=== PATIENT | male | born 1955 | race Caucasian/White ===

== ENCOUNTER 2017-02-10 12:27 | Inpatient (IN) | payer OTHER ==
[~2017-02-10] VITALS: Ht 182.9 cm; Wt 122.8 kg
--- NOTE | ~2017-02-10 | ESTC ---
Cardiac Perfusion Imaging Demographics Patient Name ARMAND CORTES Gender Male Patient Number [id number] Race Visit Number [id number] Ethnicity Corporate ID Room Number G6226 Accession Number [id number] Height 72 inches Date of 1955 Weight 268 pounds Interpreting Ana Rosa Ocampo Date of study 02/11/2017 Physician Supervising /JEAN Ocampo NM Technologist Emmanuelle Milan MD Ordering Physician Ana Rosa Ocampo Stress Vipul Hines MD electronics technician apprentice RDCS, RVT Stress ECG Reading Ana Rosa Ocampo Nurse Kofi Yoo RN Physician Procedure Procedure Type: Nuclear Stress Test:Pharmacological, Lexiscan, Cardiolite Stress Test Procedure Start time: 02/11/2017 07:20 Indications: Shortness of breath. Risk Factors The patient risk factors include:prior PCI on 12/01/2010;obesity, former tobacco use, treated hypercholesterolemia, treated hypertension, chronic lung disease and dyslipidemia. Conclusions Summary Lexiscan cardiolite with medium sized area of fixed defect of moderate degree most consistent with soft tissue attenuation. Low normal EF and WM. Stress Protocols Resting ECG RSR. Pre-stress physical exam: Un changed. Predicted HR: 161 bpm ECG Findings No ECG changes suggestive of ischemia. Arrhythmias No rhythm abnormality. Symptoms Shortness of breath. Flushed. Stress Interpretation Lexiscan cardiolite with no significant hemodynamic response. SOB without chest pain. No ischemia. No arrythmias. Imaging Results High risk findings Summed scores - LV dilatation (TID) - Summed stress score: 0 - Summed rest score: 0 - Summed difference score: 0 Stress ejection Ejection fraction:48 % EDV :100 ml ESV :52 ml Stroke volume :48 ml LV mass :126 gr LV size:Normal Normal LV function Imaging Protocols Rest Stress Isotope:Tc99m Sestamibi IV Isotope: Tc99m Sestamibi IV Isotope dose:15.2 mCi Isotope dose:41.8 mCi Date:02/11/2017 07:20 Date:02/11/2017 10:04 Technique: SPECT Technique: Gated Supine SPECT Supine IV remains in place after procedure. Scan Time:30 minutes post injection Scan Time:45-60 minutes post injection Procedure Medications - Regadenoson (Lexiscan) 0.4 mg IV over 10-15 sec. I.V. 0.4 mg. Medical History Admission Data Admission date: 02/10/2017 Admission Time: 12:27 Hospital Status: Inpatient. Signatures dtt: Damaris Oseguera dtd: 02/11/17 0720 Physician Self Edit
--- NOTE | ~2017-02-10 | DS ---
PATIENT'S NAME: TERESA ACUNA [facility] AGE: 61 Y [address] ROOM: [place] [address] LOCATION: GPCU ADMIT DATE: 02/10/2017 Discharge Summary DISCHARGE DATE: 02/18/2017 FAMILY PHYSICIAN: Earl Louis MD ATTENDING PHYSICIAN: Tessa Gonzalez PRIMARY DIAGNOSES: 1. Acute on chronic hypoxic and hypercapnic respiratory failure with chronic obstructive pulmonary disease exacerbation. 2. Hyperglycemia. 3. Acute on chronic diastolic congestive heart failure. 4. Acute kidney injury. 5. Chronic kidney disease stage III. 6. Essential hypertension. 7. Cervical spinal stenosis. HISTORY OF PRESENTING ILLNESS AND REASON FOR ADMISSION: Please refer to the H and P dictated on 02/10/[address] Maria. HOSPITAL COURSE: The patient was admitted to the hospital as noted above with a presumptive diagnosis of COPD exacerbation and diastolic heart failure. He did receive aggressive pulmonary hygiene and diuresis. His clinical condition improved slowly. He had initially been admitted under the care of Dr. Gonzalez and for the planned treatment of cervical spinal stenosis. Because of his respiratory status; however, the hospitalist team provided medical management during the course of his hospital stay. He did receive broad-spectrum antibiotic therapy and also a steroid burst. He was diuresed with IV Bumex. His clinical condition improved and oxygen requirements eventually subsided. By 02/18/2017, it was felt that he would be stable enough for discharge to home with plans for close outpatient followup with his primary care provider as well as outpatient followup with Dr. Gonzalez. DISCHARGE INSTRUCTIONS: Diet: Regular as tolerated. Activity: As tolerated. MEDICATIONS: 1. Lactobacillus 1 cap p.o. b.i.d. 2. Acetaminophen 1000 mg p.o. q.6 hours p.r.n. 3. Symbicort 160/4.5 one puff p.o. b.i.d. 4. Tessalon Perles 200 mg p.o. t.i.d. p.r.n. PATIENT'S NAME: TERESA ACUNA [facility] AGE: 61 Y [address] ROOM: [place] [address] LOCATION: GPCU ADMIT DATE: 02/10/2017 Discharge Summary DISCHARGE DATE: 02/18/2017 FAMILY PHYSICIAN: Earl Louis MD ATTENDING PHYSICIAN: Tessa Gonzalez 5. DuoNeb 4 times a day as needed. 6. Ranitidine 150 mg p.o. q.h.s. 7. Amlodipine 10 mg p.o. daily. 8. Carvedilol 3.125 p.o. b.i.d. 9. Chlorthalidone 25 mg p.o. daily. 10. Fenofibrate 145 mg p.o. daily. 11. Omeprazole 40 mg p.o. daily. 12. Simvastatin 80 mg p.o. q.h.s. 13. Tramadol 50 to 100 mg p.o. q.4 hours p.r.n. 14. Flexeril 10 mg p.o. b.i.d. p.r.n. 15. Aspirin 81 mg p.o. daily. 16. Prednisone 10 mg p.o. daily for 3 days, then 5 mg p.o. daily for 3 days, then stop. FOLLOWUP: He will follow up with Dr. Louis in 3-5 days. Follow up with Dr. Gonzalez in 1-2 weeks. CONDITION ON DISCHARGE: Fair. TOTAL TIME SPENT ON DISCHARGE PROCESS: 45 minutes. MD TERESA SERNA/carlos manuel /[id number] d: 03/06/17 0448 t: 03/07/17 0804, DISCHARGE SUMMARY
--- NOTE | ~2017-02-10 | CATH ---
Cardiac Diagnostic Report Demographics Patient Name ARMAND CORTES Gender Male Date of 1955 Age 61 year(s) Patient Number [id number] Date of Study 02/16/2017 Visit Number [id number] Room Number G6321 [place] [id number] Ht 182.88 cm Wt 120.2 kg Referring Ana Rosa Primary Physician Physician Damaris SCHOFIELD Performing Ana Rosa Secondary Physician Physician Damaris SCHOFIELD Diagnostic Ana Rosa Assisting Physician Physician Damaris SCHOFIELD Interventional Physician Sports Management Internship Physician Findings and Conclusions Diagnostic Findings and Conclusion LVEDP 5 Patent stent LCFX mild CAD Diagnostic Recommendations medical therapy Procedure Description The patient was brought to the diagnostic cardiac catheterization-EP laboratory in the fasting, non-sedated state. Informed consent was obtained in the written and verbal form after the risks and benefits were explained. The patient had no further questions and agreed to proceed. The planned puncture-incision site(s) were shaved and prepped with ChloraPrep and draped in the usual sterile manner. Conscious sedation, supplemental oxygen, and pain control medications were delivered by a registered nurse under physician guidance. Surface ECG rhythm, blood pressure measurement, and pulse oximetry were monitored throughout the procedure. Arterial access. The access site was infiltrated with lidocaine. The vessel was entered with the Seldinger technique. A sheath was advanced into the vessel and used for catheter placement. Selective left coronary angiography. A catheter was advanced into the left coronary vessel ostium under Fluoroscopic guidance. Contrast was injected by hand. Images were obtained in multiple projections. Selective right coronary angiography. A catheter was advanced into the right coronary vessel ostium under fluoroscopic guidance. Contrast was injected by hand. Images were obtained in multiple projections. Left heart catheterization. A catheter was advanced across the aortic valve to the left ventricle under fluoroscopic guidance. Resting hemodynamics were obtained. Arterial artery hemostasis was achieved. The patient was transferred to a regular nursing floor via cart accompanied by a nurse. The patient left the laboratory in stable condition. Diagnostic Cath Status: Urgent Procedure Procedure Type Diagnostic procedure:Angiography:, Coronary Angios w/[facility] Indications: Positive Nuclear: Intermediate and COPD. The procedure was explained in detail to the patient. Risks, complications and alternative treatments were reviewed. Written consent was obtained. Medications Reviewed with Patient prior to Procedure. Angiographic Findings Dominance: Right Cardiac Arteries and Lesion Findings LMCA: Abnormal.luminal irregularities LAD: Abnormal.mild diffuse disease, mid LAD 40% followed by 30% Lesion on Mid LAD: Mid subsection.40% stenosis . Lesion on Mid LAD: Distal subsection.30% stenosis . LCx: Abnormal.mild diffuse disease and patent stent noted RCA: Abnormal.mild diffuse disease Coronary Tree Procedure Data Procedure Date Date: 02/16/2017Start: 11:42 AMEnd: 12:08 PM Entry Locations - Retrograde Percutaneous access was performed through the Right Femoral artery (Primary location). A 7 Fr sheath was inserted. Hemostasis was successfully obtained using Perclose ProGlide (Morrison). Closure Comments: deployed by cayetano. Procedure Medications Order and Administration + + + + + !Time !Medication !Dosage !Route ! + + + + + !02/16/2017 11:35 AM !Versed !0.5 mg !I.V. ! + + + + + !02/16/2017 11:36 AM !Fentanyl !25 mcg !I.V. ! + + + + + !02/16/2017 11:42 AM !Versed !0.5 mg !I.V. ! + + + + + !02/16/2017 11:44 AM !Fentanyl !25 mcg !I.V. ! + + + + + !02/16/2017 11:49 AM !0.9% NaCl !150 ml/hr !I.V. drip ! + + + + + Devices Used - A6 Fr. BS JR 4 Diag. Catheterwas used for:Right coronary angiography. - A6 Fr. BS JL 4 Diag. Catheterwas used for:Left coronary angiography. - ACATH 6F JL4.5 CATHETER 100CMwas used for:Left coronary angiography. Contrast Material - Isovue 64374 ml Fluoroscopy Time: Diagnostic: 4:48 minutes. Total: 4:48 minutes. Fluoroscopy Dose: Diagnostic: 1689 mGy. Total: 1689 mGy. Estimated Blood Loss: 15 ml. Medical History Allergies - No known allergies. Risk Factors The patient risk factors include:prior PCI on 12/01/2010;obesity, treated hypercholesterolemia, treated hypertension, chronic lung disease, last creatinine: 1.4 mg/dl, creatinine clearance: 96.59 ml/min, dyslipidemia, Current/Recent(w/in 1 year) tobacco use and prior heart failure . Admission Data Admission Date: 02/10/2017 Admission Time: 12:27 PM Admit Source: Transfer acute care facility Insurance Payors: Private health insurance. Admission Medications + +------+------+ + + + + !Medication !Dosage!Times !Last !Last !Administered !Comments ! ! ! !Per !Delivery !Delivery ! ! ! ! ! !Day !Date !Time ! ! ! + +------+------+ + + + + !Beta ! ! ! ! !Yes ! ! !Anel ! ! ! ! ! ! ! !(any) ! ! ! ! ! ! ! + +------+------+ + + + + !Non-Statin ! ! ! ! !Yes ! ! !(any) ! ! ! ! ! ! ! + +------+------+ + + + + !Statin ! ! ! ! !Yes ! ! !(any) ! ! ! ! ! ! ! + +------+------+ + + + + Clinical Evaluation Leading to Procedure - There were no CAD presentation symptoms. - There were no anginal symptoms. Anti-anginal medications were prescribed during the past two weeks. The medications are: Beta Blockers and Other. - The patient has been in a state of heart failure within the past two weeks. - The patient's heart failure status was assessed as NYHA Class IV. VA Ventriculography Findings LVEDP 5 Hemodynamics Condition: Rest O2 Consumption: Estimated: 265.13Heart Rate: 51 bpm Pressures (mmHg) +-----+ + !Site !Pressure ! +-----+ + !LV !120/1 ,9 ! +-----+ + !LV !117/1 ,8 ! +-----+ + !AO !123/69 (93) ! +-----+ + !LV !119/0 ,9 ! +-----+ + !AO !124/70 (94) ! +-----+ + Valve Gradients and Areas + +---------+---------+---------+ +---------+ + !Valve !Peak !Mean !Area !Index !Flow !Source ! + +---------+---------+---------+ +---------+ + !Aortic !0 !0 ! ! ! ! ! + +---------+---------+---------+ +---------+ + !Aortic !0 !0 ! ! ! ! ! + +---------+---------+---------+ +---------+ + Shunts Oxygen Values O2 Capacity 216.24 O2 Consumption 265.13 Signatures dtt: Damaris Oseguera dtd: 02/16/17 1142 Physician Self Edit
--- NOTE | ~2017-02-10 | CON ---
PATIENT'S NAME: TERESA ACUNA [facility] AGE: 61 Y [address] ROOM: [address] [place], [place] [address] LOCATION: [facility] ADMIT DATE: 02/10/2017 Consultation DISCHARGE DATE: FAMILY PHYSICIAN: Earl Louis MD ATTENDING PHYSICIAN: Tessa Gonzalez DATE OF CONSULTATION: 02/10/2017 REFERRING PHYSICIAN: Damaris Oseguera MD Dear Dr. Mcintosh: Thank you for asking me to see Mr. Acuna, who is a 61-year-old male patient, who was noticing worsening shortness of breath and tiredness since 2013. In 2010, he had shortness of breath and had fluid in his lungs, which led to putting a stent in his circumflex vessel. After that, he thought he was doing well up until 2013. A week before he arrived in [place], he developed "bronchitis" and was evaluated by Dr. Earl Louis and was hospitalized in [place]. He talked about having lot of pain in his neck, and he underwent an MRI evaluation there. He was sent over to Dr. Gonzalez as an outpatient. When he got here, he was quite short of breath, and so he was hospitalized for further evaluation of the shortness of breath. He currently seems to be in functional class IV. He has been on 2 L of oxygen for the past week at least. He denies any chest pain. He denies any paroxysmal nocturnal dyspnea or orthopnea. There is no history of syncope, presyncope, palpitations, lightheadedness, dizziness, or ankle swelling. The patient has history of hypertension, hyperlipidemia, and he is a smoker. There is no family history of premature coronary artery disease. There is no history of diabetes. There is no history of ME or angina or nitroglycerin use. There is no history of rheumatic fever, heart murmur. He has history of congestive heart failure. There is no history of atrial fibrillation. There is mention of a moderate mitral regurgitation in his chart. MEDICATIONS: 1. Lactobacillus. 2. Acetaminophen. 3. Symbicort. 4. Levofloxacin. 5. Methylprednisone. 6. Potassium chloride. 7. Ranitidine. 8. Amlodipine 10 mg a day. PATIENT'S NAME: TERESA ACUNA [facility] AGE: 61 Y [address] ROOM: [address] [address] LOCATION: [facility] ADMIT DATE: 02/10/2017 Consultation DISCHARGE DATE: FAMILY PHYSICIAN: Earl Louis MD ATTENDING PHYSICIAN: Tessa Gonzalez 9. Carvedilol 12.5 p.o. b.i.d. 10. Chlorthalidone 25 mg once a day. 11. Fenofibrate 145 mg a day. 12. Omeprazole 40 mg a day. 13. Simvastatin 80 mg a day. 14. Tramadol 50 mg 1-2 every 4 hours. 15. Cyclobenzaprine. 16. Zanaflex. ALLERGIES: NONE. PAST MEDICAL HISTORY: 1. COPD. 2. Sleep apnea. 3. Cervical stenosis. 4. History of hernia surgery. SOCIAL HISTORY: The patient is single. He denies abusing alcohol. His appetite and weight are stable. Sleep is poor. FAMILY HISTORY: No premature coronary artery disease. REVIEW OF SYSTEMS: 1. Sinuses. 2. Cough. 3. COPD. 4. CKD. PHYSICAL EXAMINATION: VITAL SIGNS: On examination, his blood pressure is 180/80, heart rate is in the 70s and regular, respirations 18, afebrile. HEENT: Normal. NECK: Supple with no JVD, thyromegaly, lymphadenopathy, or carotid bruit. PMI is not well located. First and second heart sounds are regular. There are no added sounds or murmurs. CHEST: Clear to auscultation. ABDOMEN: Soft and nontender. Bowel sounds are normally present. EXTREMITIES: Reveal trace edema. CENTRAL NERVOUS SYSTEM: Intact. ASSESSMENT: A 61-year-old male patient with hypertension, hyperlipidemia, low HDL level, PATIENT'S NAME: TERESA ACUNA [facility] AGE: 61 Y [address] ROOM: [address] [place] [id number] LOCATION: [facility] ADMIT DATE: 02/10/2017 Consultation DISCHARGE DATE: FAMILY PHYSICIAN: Earl Louis MD ATTENDING PHYSICIAN: Tessa Gonzalez who smoked until 7 days ago, who has significant shortness of breath. He is awaiting neck surgery. He was recently started on oxygen 7 days ago. The extent of his chronic obstructive pulmonary disease is unclear. His D-dimer is elevated. His stress test basically shows transient ischemic dilation. His echo shows normal EF. RECOMMENDATIONS: We will try to get a CT of the chest PE protocol by tomorrow or day after tomorrow depending on how his kidney does. His stress test will also be done and based further management on his stress test as well as his PFTs. Again, I appreciate this opportunity to participate in the care of Mr. Acuna. MD GREGORIA SINGLETARY/carlos manuel /[id number] d: 02/11/17 2304 t: 02/25/17 1233, CONSULTATION REPORT
--- NOTE | ~2017-02-10 | HP ---
PATIENT'S NAME: TERESA ACUNA [facility] AGE: 61 Y [address] ROOM: [place] [address] LOCATION: [facility] ADMIT DATE: 02/10/2017 History & Physical DISCHARGE DATE: FAMILY PHYSICIAN: Earl Louis MD ATTENDING PHYSICIAN: Tessa Gonzalez DATE OF SERVICE: CHIEF COMPLAINT: Shortness of breath. HISTORY OF PRESENT ILLNESS: The patient is a very poor historian. His past medical history was obtained entirely from our medical records. He is a 61-year-old male with past medical history significant for coronary artery disease and moderate mitral regurgitation. The patient was being evaluated in Dr. Gonzalez's office today for a surgical intervention for cervical spinal stenosis, but was found to be considerably dyspneic, and was sent directly to the hospital. Of note, the patient was recently treated by his PMD for "bronchitis." The patient is not sure as to any of the medicines that he is on, but I do see Medrol Dosepak and Levaquin in his medical regimen. The patient also reports that he was started on oxygen at 2 L nasal cannula. He denies any chest pain, nausea, vomiting, diaphoresis, or any dyspnea in fact, while his oxygen saturation was indeed in low 80s here. He denies any orthopnea, but he constantly sleeps on two pillows. Upon evaluation on the floor, the patient was found to be saturating in low 80s, and required six liters to seven liters to get him over 90. REVIEW OF SYSTEMS: All systems have been reviewed and are negative aside from pertinent positives mentioned above. PAST MEDICAL HISTORY: Again, this is extracted from the chart as the patient initially told me that he did not have any medical problems. 1. COPD chronic obstructive pulmonary disease. 2. Obstructive sleep apnea, on CPAP. 3. Coronary artery disease, status post stenting with bare-metal stent in 2010. PATIENT'S NAME: TERESA ACUNA [facility] AGE: 61 Y [address] ROOM: [address] [address] LOCATION: [facility] ADMIT DATE: 02/10/2017 History & Physical DISCHARGE DATE: FAMILY PHYSICIAN: Earl Louis MD ATTENDING PHYSICIAN: Tessa Gonzalez 4. Moderate mitral regurgitation. 5. Hypertension. 6. Hyperlipidemia. 7. Cervical spinal stenosis. SURGICAL HISTORY: The patient endorses history of a hernia. CURRENT MEDICATIONS: As extracted from supplementing records, 1. Tylenol. 2. Amlodipine. 3. Benzonatate. 4. Symbicort. 5. Carvedilol. 6. Chlorthalidone. 7. Cyclobenzaprine. 8. Fenofibrate. 9. DuoNeb. 10. Lactobacillus. 11. Levaquin. 12. Medrol. 13. Omeprazole. 14. Potassium chloride. 15. Ranitidine. 16. Simvastatin. 17. Tizanidine hydrochloride. 18. Tramadol. SOCIAL HISTORY: Habits: The patient endorses 80 pack years, having stopped one week ago. He denies any alcohol or drug use. Occupational History: He works at a [employer] plant. Nutrition Status: He endorses dietary non-compliance, and basically eats whatever he wants. FAMILY HISTORY: Reviewed and is noncontributory due to known underlying etiology of the patient's presentation. PHYSICAL EXAMINATION: VITAL SIGNS: At this point, his heart rate is in the 70s, his blood pressure is 118/60, saturating 88% on 4 L nasal cannula, afebrile, and respirations are PATIENT'S NAME: TERESA ACUNA [facility] AGE: 61 Y [address] ROOM: [address] [place], [place] [address] LOCATION: [facility] ADMIT DATE: 02/10/2017 History & Physical DISCHARGE DATE: FAMILY PHYSICIAN: Earl Louis MD ATTENDING PHYSICIAN: Tessa Gonzalez 16. GENERAL: He appears as a morbidly obese, middle-aged male, in no acute distress. NEUROLOGICAL: Nonfocal. OPHTHALMOLOGICAL: Eye exam shows pupils are equal and reactive to light. LYMPHATICS: Showed cervical lymphadenopathy. ENDOCRINE: Showed no thyromegaly. LUNGS: Revealed diminished breath sounds in all workman. There are expiratory crackles appreciated at bases as well as at apices bilaterally. There is about 8 cm of jugular venous distention. CARDIAC: Heart rate is regular with no appreciable murmurs, gallops, or rubs. There is no lower extremities edema. GASTROINTESTINAL: Abdomen is soft, nontender, and nondistended. GENITOURINARY: Revealed no costovertebral angle tenderness. VASCULAR: A 2+ pedal pulses. MUSCULOSKELETAL: Reveals some upper extremity weakness. SKIN: Warm and dry. PSYCHIATRIC: Reveals appropriate mood, cognition, and affect. LABORATORY DATA AND DIAGNOSTIC STUDIES: Studies that are available at this point is an ABG (arterial blood gases) showing pH of 7.54, pCO2 of 36, pO2 of 56 with a bicarbonate of 30.8, and saturation of 92% on 7 L. Sodium was 134, potassium was 3.1, chloride was 95, calcium was 8.3, BUN was 27, and creatinine was 1.6. ProBNP is 1487. D-dimer of 1.196. Chest x-ray demonstrates pulmonary edema, more pronounced on the left. ASSESSMENT AND PLAN: This is a 61-year-old male, who will be admitted as inpatient with 1. Acute on chronic hypoxic respiratory failure. This is likely a combination of underlying chronic obstructive pulmonary disease, as well as diastolic dysfunction/mitral regurgitation. We will begin diuresing the patient, and monitor his saturations. We will continue him on his inhalers as well as antibiotics for chronic obstructive pulmonary disease exacerbation, and continue him on steroids. We will provide him supplemental oxygen, but he appears to be at least somewhat of a chronic retainer, and we will keep his oxygen saturations between 88 and 92 if possible. 2. Suspected acute on chronic diastolic congestive heart failure. We will PATIENT'S NAME: TERESA ACUNA [facility] AGE: 61 Y [address] ROOM: [place] [address] LOCATION: [facility] ADMIT DATE: 02/10/2017 History & Physical DISCHARGE DATE: FAMILY PHYSICIAN: Earl Louis MD ATTENDING PHYSICIAN: Tessa Gonzalez the patient. We will get a two-dimensional echocardiogram. We will request records from his primary pest control technician, Dr. Glasgow. 3. Tobaccoism. At this point, the patient claims to have quit, but we will offer him a nicotine patch if needed. 4. Coronary artery disease. We will check the patient's lipids, and continue him on aspirin. Given his dietary non-compliance and continued tobacco use, we will get a Cardiology evaluation as the patient is being planned for a spinal surgery. Additional management will depend on clinical course. Critical care time dedicated to this patient's encounter is 35 minutes. MD MICHELLE RYAN/carlos manuel /[id number] D: [id number] T: [id number] HISTORY & PHYSICAL
--- NOTE | ~2017-02-10 | PUL ---
PATIENT'S NAME: TERESA ACUNA [facility] AGE: 61 Y [address] ROOM: [address] [address] LOCATION: [facility] ADMIT DATE: 02/10/2017 Pulmonary DISCHARGE DATE: FAMILY PHYSICIAN: Earl Louis MD ATTENDING PHYSICIAN: Tessa Gonzalez NAME OF PROCEDURE: Pulmonary Function Test DATE OF PROCEDURE: February 12, 2017 TECH: SACHIN Wilde REASON FOR EXAM: COPD RESULTS: 1. FVC was 3.04 liters which is 59% of predicted and low, FEV1 was 2.27 liters which is 58% of predicted and low, and FEV1/FVC was 75% and normal. The flow volume curve did not reveal any significant airflow limitation. However, there is suggestion of restrictive lung disease. After bronchodilator administration FVC decreased to 2.99 liters and FEV1 decreased to 2.24 liters. FEV1/FVC was 75%. 2. DLCO was 9.3 with an adjusted DLCO of 8.8 which is 30% of predicted and low. 3. Total lung capacity was 5.53 liters which is 77% of predicted and low, and residual volume was 2.44 liters which is 98% of predicted and normal. PHYSICIAN INTERPRETATION: The patient has no airflow limitation and no significant bronchodilator response. His diffusion capacity is severely low. There is evidence of moderately severe restrictive lung disease. TYRONE BAUTISTA MD RFSheri/toya /[id number] dtt: 02/12/17 1403 , TYRONE BAUTISTA dtd: 02/12/17 1106
--- NOTE | ~2017-02-10 | ECHO ---
Transthoracic Echocardiography Report (TTE) Demographics Patient Name TERESA ACUNA Date of Study 02/10/2017 Patient Number [id number] Visit Number [id number] Date of 1955 Room Number G6226 Accession Number [id number] Gender Male Age 61 year(s) Referring Carlos Wade Hand Touch Up Painter Chino Lundberg Physician MD Heriberto Jean MD Physician Interpreting Ana Rosa Ocampo Flotation Tank Operator Physician Supervising Ordering Physician Candace Li MD/[facility] [place] Nurse Stress Carton Forming Machine Tender Conclusions Contractility Score Summary Normal Left Ventricular contractility was noted. Summary The estimated left ventricular ejection fraction is 55% with normal WM.The left ventricle is normal in size .Mild concentric left ventricular hypertrophy. The right atrial pressures are mildly increased. Trivial MR and AR. Trivial TR with normal pulmonary pressures. Procedure Type of Study TTE procedure:2D Echocardiogram, M-Mode, Doppler , Color Doppler. Procedure Date Date: 02/10/2017 Start: 03:07 PM Study Location: Inpatient Portable Technical Quality: Good visualization Indications:CHF. Appropriate Use Criteria: 9 Patient Status: Routine HR: 61 bpm BP: 110/73 mmHg M-Mode/2D Measurements LV Diastolic Dimension: 4.94 cm LV Systolic Dimension: 3.18 cm LV Septum Diastolic: 1.21 cm LV PW Diastolic: 1.38 cm AO Root Dimension: 2.9 cm Cardiac Output: 4.64 l/min LA Dimension: 4.4 cm LVOT: 2.3 cm LVOT VTI: 18.3 cm RV Base: 3.13 cm LV Stroke volume: 75.99 ml RV Length: 7.75 cm TAPSE: 2.02 cm TDI-S': 15.1 cm/s Doppler Measurements AV Peak Velocity: 1.1 m/s MV Peak E-Wave: 0.52 m/s AV Peak Gradient: 4.84 mmHg MV Peak A-Wave: 0.98 m/s AV Mean Gradient: 3 mmHg MV E/A Ratio: 0.52 LVOT Peak Velocity: 1 m/s MV P1/2t: 47 msec MV Deceleration Time: 155 msec TR Gradient:24.6 mmHg PV Peak Velocity: 0.64 m/s Estimated RAP:8 mmHg PV Peak Gradient: 1.62 mmHg Estimated RVSP: 33 mmHg Estimated PASP: 32.6 mmHg E' Septal Velocity: 0.07 m/s A' Septal Velocity: 0.1 m/s E' Lateral Velocity: 0.07 m/s A' Lateral Velocity: 0.11 m/s Findings Left Ventricle The left ventricle is normal in size .Mild concentric left ventricular hypertrophy.Normal EF and WM. Right Ventricle Normal right ventricle structure and function. Left Atrium Normal left atrial size. Right Atrium Normal right atrial size. Increased RA pressures. Mitral Valve Trivial mitral regurgitation by color Doppler. Aortic Valve Normal aortic valve structure and function. Tricuspid Valve Trivial tricuspid regurgitation by color Doppler. Pulmonic Valve Normal pulmonic valve structure and function. Pericardial Effusion No evidence of pericardial effusion. Miscellaneous Visualized portions of the aortic root and ascending aorta appear normal in size. Pleural Effusion No evidence of pleural effusion. Contractility Score LV regional wall motion:(0-Non visualized 1-Normal 2-Hypokinesis 3-Akinesis 4-Dyskinesis 5-Aneurysm) Signature dtt: Damaris Oseguera dtd: 02/10/17 1507 Physician Self Edit
[2017-02-10] MEDS ORDERED: ACIDOPHILUS1 EAC4 PO (13:06)
[2017-02-10] MEDS ORDERED: TYLENOL EXTRA500 MG PO (13:07)
[2017-02-10] MEDS ORDERED: SYMBICORT 16010.2 GM INH (13:07)
[2017-02-10] MEDS ORDERED: BENZONATATE200 MG PO (13:08)
[2017-02-10] MEDS ORDERED: IPRAT-ALBUT 0.5-3 ML INH (13:09)
[2017-02-10] MEDS ORDERED: LEVAQUIN500 MG PO (13:12)
[2017-02-10] MEDS ORDERED: MEDROL4 M1 PO (13:13)
[2017-02-10] MEDS ORDERED: POTASSIUM CHLO20 ME1 PO (13:13)
[2017-02-10] MEDS ORDERED: NORVASC10 MG PO (13:14)
[2017-02-10] MEDS ORDERED: COREG 3.1253.125 MG PO (13:14)
[2017-02-10] MEDS ORDERED: ZANTAC (NON-FO150 MG PO (13:14)
[2017-02-10] MEDS ORDERED: HYGROTON25 MG PO (13:14)
[2017-02-10] MEDS ORDERED: TRICOR145 MG PO (13:15)
[2017-02-10] MEDS ORDERED: ZOCOR80 MG PO (13:15)
[2017-02-10] MEDS ORDERED: OMEPRAZOLE40 MG PO (13:15)
[2017-02-10] MEDS ORDERED: FLEXERIL10 MG PO (13:16)
[2017-02-10] MEDS ORDERED: ULTRAM50 MG PO (13:16)
[2017-02-10] MEDS ORDERED: ZANAFLEX4 MG PO (13:17)
[2017-02-10 13:24] LABS: BICARBONATE 30.8 mmol/L (18.0-23.0); PCO2 36 mmHg (35-45); PO2 56 mmHg (80-90)
[2017-02-10 13:32] LABS: HEMATOCRIT 48.2 % (37.0-53.0); HEMOGLOBIN 16.7 g/dL (12.0-17.0); MCH 30.9 pg (27.0-34.0); MCHC 34.6 gm/dL (32.0-36.5); MCV 89.3 fl (83.0-98.0); MPV 10.4 fl (9.4-12.4); PLATELET COUNT 158 K/uL (150-450); RDW-CV 13.9 % (11.9-14.6); WBC 7.5 K/uL (4.0-11.0)
[2017-02-10 13:49] LABS: ANION GAP 12.1 (10.0-19.0); CALCIUM 8.3 mg/dL (8.5-10.5); CREATININE 1.6 mg/dL (0.6-1.3); MAGNESIUM 1.9 mg/dL (1.3-2.6); PHOSPHORUS 3.4 mg/dL (2.5-4.9); POTASSIUM 3.1 mMol/L (3.7-5.1)
[2017-02-10 14:03] LABS: BANDED NEUTROPHIL # 0.4 K/uL (0.0-0.1); BANDED NEUTROPHILS % 5 %; LYMPHOCYTE # 1.4 K/uL (0.8-4.0); LYMPHOCYTE % 9 %; MONOCYTE # 0.2 K/uL (0.0-1.0); SEGMENTED NEUTROPHIL # 5.6 K/uL (1.4-9.0)
[2017-02-10 14:04] LABS: ABSOLUTE NEUTROPHIL CT (ANC) 5.9 K/uL (1.4-9.0); SEGMENTED NEUTROPHIL % 74 %
[2017-02-10 15:05] LABS: CPK 159 IU/L (35-332)
[2017-02-11 05:15] LABS: ANION GAP 12.4 (10.0-19.0); CALCIUM 8.8 mg/dL (8.5-10.5); CREATININE 1.7 mg/dL (0.6-1.3); MAGNESIUM 2.4 mg/dL (1.3-2.6); PHOSPHORUS 4.2 mg/dL (2.5-4.9); POTASSIUM 3.4 mMol/L (3.7-5.1)
[2017-02-12 04:33] LABS: CALCIUM 8.9 mg/dL (8.5-10.5); CREATININE 1.6 mg/dL (0.6-1.3)
[2017-02-12 04:36] LABS: ANION GAP 11.6 (10.0-19.0); POTASSIUM 3.6 mMol/L (3.7-5.1)
[2017-02-13 04:11] LABS: HEMATOCRIT 46.7 % (37.0-53.0); HEMOGLOBIN 15.8 g/dL (12.0-17.0); MCH 31.1 pg (27.0-34.0); MCHC 33.8 gm/dL (32.0-36.5); MCV 91.9 fl (83.0-98.0); MPV 10.1 fl (9.4-12.4); RBC 5.08 M/uL (4.00-6.00); RDW-CV 13.9 % (11.9-14.6); WBC 7.6 K/uL (4.0-11.0)
[2017-02-13 04:13] LABS: PLATELET COUNT 257 K/uL (150-450)
[2017-02-13 04:29] LABS: ANION GAP 11.5 (10.0-19.0); CALCIUM 8.8 mg/dL (8.5-10.5); CREATININE 1.8 mg/dL (0.6-1.3); POTASSIUM 3.5 mMol/L (3.7-5.1)
[2017-02-13 05:34] LABS: ABSOLUTE NEUTROPHIL CT (ANC) 5.9 K/uL (1.4-9.0); BANDED NEUTROPHIL # 0.6 K/uL (0.0-0.1); BANDED NEUTROPHILS % 8 %; LYMPHOCYTE # 1.4 K/uL (0.8-4.0); LYMPHOCYTE % 18 %; MONOCYTE # 0.3 K/uL (0.0-1.0); SEGMENTED NEUTROPHIL # 5.2 K/uL (1.4-9.0); SEGMENTED NEUTROPHIL % 69 %
[2017-02-14 05:10] LABS: HEMATOCRIT 46.6 % (37.0-53.0); HEMOGLOBIN 15.9 g/dL (12.0-17.0); MCH 31.2 pg (27.0-34.0); MCHC 34.1 gm/dL (32.0-36.5); MCV 91.6 fl (83.0-98.0); PLATELET COUNT 297 K/uL (150-450); RBC 5.09 M/uL (4.00-6.00); RDW-CV 13.7 % (11.9-14.6); WBC 13.3 K/uL (4.0-11.0)
[2017-02-14 05:19] LABS: ANION GAP 10.7 (10.0-19.0); CALCIUM 8.7 mg/dL (8.5-10.5); CREATININE 1.6 mg/dL (0.6-1.3); POTASSIUM 3.7 mMol/L (3.7-5.1)
[2017-02-14 07:19] LABS: ABSOLUTE NEUTROPHIL CT (ANC) 10.1 K/uL (1.4-9.0); BANDED NEUTROPHIL # 0.5 K/uL (0.0-0.1); BANDED NEUTROPHILS % 4 %; LYMPHOCYTE # 2.3 K/uL (0.8-4.0); LYMPHOCYTE % 17 %; MONOCYTE # 0.9 K/uL (0.0-1.0); SEGMENTED NEUTROPHIL # 9.6 K/uL (1.4-9.0); SEGMENTED NEUTROPHIL % 72 %
[2017-02-15 05:27] LABS: BASOPHIL % 0.3 %; HEMATOCRIT 47.2 % (37.0-53.0); HEMOGLOBIN 15.9 g/dL (12.0-17.0); IMMATURE GRANULOCYTE # 0.6 K/uL (0.0-0.3); LYMPHOCYTE # 1.4 K/uL (0.8-4.0); MCH 30.9 pg (27.0-34.0); MCHC 33.7 gm/dL (32.0-36.5); MCV 91.7 fl (83.0-98.0); MONOCYTE # 0.8 K/uL (0.0-1.0); MONOCYTE % 4.8 %; MPV 9.9 fl (9.4-12.4); NEUTROPHIL # (ANC) 13.1 K/uL (1.4-9.0); NEUTROPHIL % 81.9 %; NRBC % 0 /100WBC (0-0.00); PLATELET COUNT 309 K/uL (150-450); RBC 5.15 M/uL (4.00-6.00); RDW-CV 13.7 % (11.9-14.6)
[2017-02-15 05:37] LABS: ANION GAP 12.2 (10.0-19.0); CALCIUM 8.9 mg/dL (8.5-10.5); CREATININE 1.4 mg/dL (0.6-1.3); POTASSIUM 4.2 mMol/L (3.7-5.1)
[2017-02-16 03:33] LABS: BASOPHIL % 0.2 %; HEMATOCRIT 47.2 % (37.0-53.0); HEMOGLOBIN 15.9 g/dL (12.0-17.0); IMMATURE GRANULOCYTE # 0.8 K/uL (0.0-0.3); IMMATURE GRANULOCYTE % 4.4 %; LYMPHOCYTE # 1.3 K/uL (0.8-4.0); LYMPHOCYTE % 7.1 %; MCH 31.3 pg (27.0-34.0); MCHC 33.7 gm/dL (32.0-36.5); MCV 92.9 fl (83.0-98.0); MONOCYTE # 0.9 K/uL (0.0-1.0); MONOCYTE % 4.8 %; MPV 10.2 fl (9.4-12.4); NEUTROPHIL # (ANC) 15.1 K/uL (1.4-9.0); NEUTROPHIL % 83.5 %; NRBC % 0 /100WBC (0-0.00); PLATELET COUNT 306 K/uL (150-450); RBC 5.08 M/uL (4.00-6.00); RDW-CV 13.6 % (11.9-14.6)
[2017-02-16 03:53] LABS: ANION GAP 12.2 (10.0-19.0); CALCIUM 8.7 mg/dL (8.5-10.5); CREATININE 1.4 mg/dL (0.6-1.3); POTASSIUM 4.2 mMol/L (3.7-5.1)
[2017-02-17 06:05] LABS: BASOPHIL % 0.2 %; HEMOGLOBIN 15.7 g/dL (12.0-17.0); IMMATURE GRANULOCYTE # 0.3 K/uL (0.0-0.3); IMMATURE GRANULOCYTE % 2.7 %; LYMPHOCYTE # 1.4 K/uL (0.8-4.0); LYMPHOCYTE % 12.4 %; MCH 30.9 pg (27.0-34.0); MCHC 33.4 gm/dL (32.0-36.5); MCV 92.5 fl (83.0-98.0); MONOCYTE # 0.9 K/uL (0.0-1.0); MONOCYTE % 7.9 %; MPV 9.9 fl (9.4-12.4); NEUTROPHIL # (ANC) 8.8 K/uL (1.4-9.0); NEUTROPHIL % 76.8 %; NRBC % 0 /100WBC (0-0.00); PLATELET COUNT 299 K/uL (150-450); RBC 5.08 M/uL (4.00-6.00); RDW-CV 13.7 % (11.9-14.6); WBC 11.4 K/uL (4.0-11.0)
[2017-02-17 06:13] LABS: ANION GAP 11.3 (10.0-19.0); BLOOD UREA NITROGEN 39 mg/dL (6-24); CALCIUM 8.4 mg/dL (8.5-10.5); CHLORIDE 103 mMol/L (96-110); CO2 31 mMol/L (22-32); CREATININE 1.2 mg/dL (0.6-1.3); ESTIMATED GFR (MDRD EQUATION) > 60; POTASSIUM 4.3 mMol/L (3.7-5.1); SODIUM 141 mMol/L (135-145)
[2017-02-18 04:01] LABS: BASOPHIL % 0.1 %; EOSINOPHIL % 0.3 %; HEMATOCRIT 47.4 % (37.0-53.0); HEMOGLOBIN 16.3 g/dL (12.0-17.0); IMMATURE GRANULOCYTE # 0.2 K/uL (0.0-0.3); IMMATURE GRANULOCYTE % 2.1 %; LYMPHOCYTE # 1.9 K/uL (0.8-4.0); MCH 31.2 pg (27.0-34.0); MCHC 34.4 gm/dL (32.0-36.5); MCV 90.6 fl (83.0-98.0); MONOCYTE # 0.9 K/uL (0.0-1.0); MPV 9.6 fl (9.4-12.4); NEUTROPHIL # (ANC) 7.3 K/uL (1.4-9.0); NEUTROPHIL % 70.5 %; NRBC % 0 /100WBC (0-0.00); PLATELET COUNT 314 K/uL (150-450); RBC 5.23 M/uL (4.00-6.00); RDW-CV 13.6 % (11.9-14.6); WBC 10.4 K/uL (4.0-11.0)
[2017-02-18] MEDS ORDERED: ASPIRIN (CHILDR81 MG PO (11:26)
[2017-02-18] MEDS ORDERED: PREDNISONE10 MG PO (12:02)
== END 2017-02-18 13:10 | disposition disaster alternative care site (69) | DRG 286 ==
LOC: GNTU 12:27 → EDSTATUS 12:30 → GPCU 02-15 21:32
PROVIDERS: Family Medicine; Internal Medicine; Nurse Practitioner Adult Health; Nurse Practitioner Family; ADMIT Neurological Surgery
DX: I11.0 Hypertensive heart disease with heart failure (principal); J18.9 Pneumonia, unspecified organism; J96.21 Acute and chronic respiratory failure with hypoxia; N17.9 Acute kidney failure, unspecified; M48.02 Spinal stenosis, cervical region; G95.20 Unspecified cord compression; I50.33 Acute on chronic diastolic (congestive) heart failure; E78.5 Hyperlipidemia, unspecified; E87.6 Hypokalemia; I25.10 Atherosclerotic heart disease of native coronary artery without angina pectoris; J44.9 Chronic obstructive pulmonary disease, unspecified; J98.4 Other disorders of lung
CPT/HCPCS: A9500; C1760; G0378; J0280; J1644; J1650; J1940; J2250; J2543; J2785; J2920; J3010; J3370; J7030; J7040; J7050; J7060; J7512; Q9967